=== PATIENT | female | born 1985 | race Caucasian/White ===

== ENCOUNTER → 2016-07-02 | Outpatient (CLI) | payer MEDICAID ==
[2016-07-02 16:23] VITALS: BP 115/82
--- NOTE | 2016-07-02 16:23 | Urgent Care T Sheet Gen (E) ---
Intake General Temperature (Fahrenheit): 97.8 Pulse: 104 Blood Pressure Systolic: 115 Blood Pressure Diastolic: 82 Respirations: 20 SPO2: 98 History of Present Illness Initial Comments Patient presents requesting a well woman exam and a prescription for Plan B emergency contraceptive. Patient states her PCP is Dr Tovar however couldn' t get in today. Patient went to the pharmacy this afternoon to buy Plan B however was told it was $50 without a prescription. Pharmacy then suggested she get a prescription to cut costs. Patient had unprotected sex last night. Respiratory Constitutional Symptoms: No syptoms reported EENTM: No symptoms reported Respiratory: No symptoms reported Cardiovascular: No symptoms reported Gastrointestinal/Abdominal: No symptoms reported All Other Systems Reviewed Remaining Systems: All other systems reviewed with negative findings Physical Exam Physical Exam General Appearance: WD/WN No apparent distress Respiratory Exam: No respiratory distress Departure Urgent Care Impression Impression: Primary Impression: Unprotected sex Departure Disposition: HOME OR SELF-CARE Condition: Stable Referrals: FERNANDO TOVAR MD (PCP) Additional Instructions: I have prescribed Plan B Emergency contraceptive. Called to [facility] per patient 's request I called Dr Tovar's office and Essie agreed to see her tomorrow for a well woman exam. Very appreciative of that. Explained to the patient that it is more appropriate for her PCP or [employer] to perform a WWE and not an urgent care clinic. F/U tomorrow. Appropriate testing will be done tomorrow at her 10:30 appt Patient understands DC instructions. All questions were answered. End of report . LATHA STORY July 02, 2016 16:23
== END ==
LOC: MHUC 15:31
PROVIDERS: ATTEND Physician Assistant
DX: Z70.8 Other sex counseling (principal)
CPT/HCPCS: 99202